=== PATIENT | male | born 1975 | race Caucasian/White ===

== ENCOUNTER 2016-10-11 16:11 | Emergency (ER) | payer OTHER ==
[2016-10-11 16:33] VITALS: BP 169/097
[2016-10-11] MEDS ORDERED: XYLOCAINE-MPF 1% INJ ONE (16:43)
[2016-10-11] MEDS ORDERED: XYLOCAINE-MPF 1% 10 ML ONE (16:45)
--- NOTE | 2016-10-11 17:11 | PROVIDER DOCUMENTATION ---
HPI-Head Injury - General Source: patient - History of Present Illness-Head Injury Head Injury Location: reports: temporal Other injuries associated with incident:: reports: none Quality of Pain: reports: throbbing Severity: reports: mild Onset/Duration: reports: abrupt, just prior to arrival Timing: reports: improving, gone now Method of Injury: reports: direct blow, fell Any recent trauma/injury?: reports: none Loss of Consciousness: no loss of consciousness Modifying Factors: improves with: nothing Injury Associated Symptoms: reports: denies symptoms Locality of Occurance: Home Similar Symptoms Previously?: Yes Recently seen or treated by another doctor?: Yes <Sung Huffman - Last Filed: 10/11/16 17:09> <Allen Galvan - Last Filed: 10/11/16 17:47> - General Chief Complaint: Head Injury Stated Complaint: FALL/HEAD INJURY Time Seen by Provider: 10/11/16 16:36 Allergies/Adverse Reactions: Patient Allergies Allergy/AdvReac Type Severity Reaction Status Date / Time diphenhydramine HCl * Allergy Unknown Verified 10/11/16 16:34 [From Benadryl] divalproex sodium Allergy Unknown Verified 10/11/16 16:34 [From Depakote] Penicillins Allergy Unknown Verified 10/11/16 16:34 Sulfa (Sulfonamide Allergy Unknown Verified 10/11/16 16:34 Antibiotics) - History of Present Illness-Head Injury Nature of Presenting Problem: pt is a 40 yo M that presents to the ER with laceration to anabaptist after having syncopal episode, pt has chronic syncope (Sung Huffman) Review of Systems - Adult - REVIEW OF SYSTEMS - ADULT Constitutional: denies: chills, fever Eyes: denies: decreased vision, blurred vision, double vision Ears, Nose, Mouth & Throat: denies: ear pain, sinus problem, throat pain, throat swelling Cardiovascular: reports: syncope. denies: chest pain, palpitations Respiratory: reports: no symptoms reported Gastrointestinal: reports: no symptoms reported Genitourinary: reports: no symptoms reported Musculoskeletal: reports: no symptoms reported Integumentary: reports: see HPI Neurological: reports: see HPI Psychiatric: reports: no symptoms reported Endocrine: reports: no symptoms reported Hematologic/Lymphatic: reports: no symptoms reported Allergic/Immunologic: reports: no symptoms reported All Other Systems: Reviewed and Negative <Sung Huffman - Last Filed: 10/11/16 17:09> Past History - Adult - PAST MEDICAL HISTORY-ADULT Review of Records: reports: Old Records Reviewed, Nursing Assessment Review, Medications Reviewed Cardiovascular: reports: hyperlipidemia, other (chronic syncope) Gastrointestinal: reports: GERD Neurological: reports: Seizures/Epilepsy Endocrine/Immune: reports: thyroid disorder - PRIOR SURGERIES/PROCEDURES Surgical/Procedure History: reports: none - IMMUNIZATION STATUS Childhood Immunizations: See Nurse Assessment Flu Vaccine: See Nurse Assessment - FAMILY HISTORY Family History: reviewed, not pertinent - SOCIAL HISTORY Living Situation: family <Sung Huffman - Last Filed: 10/11/16 17:09> Physical Exam- Neurological - Physical Exam-Neuro Initial Vital Signs Reviewed: Yes General Appearance: alert, no apparent distress Eye Exam: bilateral eye: normal inspection, PERRL HENMT: moist mucous membranes, normal ENT inspection Head Injury: lacerations (irregular right anabaptist about 3cm) Neck: full range of motion, normal inspection Respiratory: lungs clear, normal breath sounds, no respiratory distress, no accessory muscle use Cardiovascular: regular rate, rhythm, no edema Abdominal Exam: normal bowel sounds, non tender, soft Extremity: normal range of motion, normal inspection water fitness instructor Exam: normal hearing, normal speech, PERRL Motor/Sensory: no motor deficit, no sensory deficit Neurologic: water fitness instructor II-XII nml as tested, no motor/sensory deficits Integumentary: normal turgor, warm/dry Psych/Mental Status: normal mood/affect, normal thought content, normal thought process, oriented x 3 - Glascow Coma Scale Best Eye Response: (4) open spontaneously Best Verbal Response: (5) oriented Best Motor Response: (6) obeys commands Total Glascow Score: 15 <Sung Huffman - Last Filed: 10/11/16 17:09> Progress - CT/MRI 1 CT Study: Head Impression: Normal CT Results: nad <Sung Huffman - Last Filed: 10/11/16 17:09> <Allen Galvan - Last Filed: 10/11/16 17:47> - PLAN OF CARE/RESULTS Progress/Plan/Lab Results: Orders Category Date Time Status Suture Tray Set-Up DIRECTED Care 10/11/16 16:43 Active HEAD W/O CONTRAST [CT] Stat Exams 10/11/16 16:41 Completed Lidocaine 1% Pf [Xylocaine-Mpf 1%] Med 10/11/16 16:43 Discontinued See Dose Instructions INJ NOW ONE Lidocaine 1% Pf [Xylocaine-Mpf 1%] 10 ml Med 10/11/16 16:45 Discontinued .ROUTE As Directed Vital Signs Temp Pulse Resp BP Pulse Ox 10/11/16 16:28 98.4 F 83 20 169/097 97 diphenhydramine HCl * [From Benadryl] Allergy (Verified 10/11/16 16:34) Unknown divalproex sodium [From Depakote] Allergy (Verified 10/11/16 16:34) Unknown Penicillins Allergy (Verified 10/11/16 16:34) Unknown Sulfa (Sulfonamide Antibiotics) Allergy (Verified 10/11/16 16:34) Unknown (Allen Galvan) Procedures - LACERATION/WOUND REPAIR/FB Right Face Wound Location: Other: R temporal area Wound Length: 3cm Wound's Depth, Shape: irregular, flap Wound Explored/Foreign Body: clean Irrigated with Saline?: Yes Prepped with: Betadine, Kit Utilized, Sterile Drapes Applied Anesthetic: 1%, Lidocaine/Xylocaine Volume of Anesthetic (ml's): 3 Wound Debrided: minimal Wound Repaired with: Sutures Suture Size/Type: 4.0, Non-Absorbable, Nylon Number of Sutures: 5 Layer Closure?: No Sterile Dressing Applied?: Yes Splint Applied?: No Sling Applied?: No Post Procedure Neurovascular Exam: N/A Procedure Comment: no complications <Allen Galvan - Last Filed: 10/11/16 17:47> Departure <Sung Huffman - Last Filed: 10/11/16 17:09> - Departure Time of Disposition Order: 17:46 Certified Medical Emergency: Emergent <Allen Galvan - Last Filed: 10/11/16 17:47> - Departure DIAGNOSIS: Fall Qualifiers: Encounter type: initial encounter Qualified Code(s): W19.XXXA - Unspecified fall, initial encounter Laceration of forehead Qualifiers: Encounter type: initial encounter Qualified Code(s): S01.81XA - Laceration without foreign body of other part of head, initial encounter Disposition: HOME 01 Condition: Good Additional Instructions: Keep wound clean and dry. Follow up in 5-7 days for suture removal. ED Follow Up Instructions: You have been treated by a care provider in the Emergency Department. These instructions are being provided to you so you can have an understanding of how to care for yourself upon discharge. Upon discharge from the Emergency Department, you are responsible for making arrangements for follow-up care by a physician of your choice. Take all prescribed medications as directed. Return to the Emergency Department immediately for any new or worsening symptoms. You may call the Physician Referral phone number at [phone] to obtain a list of Physicians who are taking new patients. Referrals: Mata Pierre MD [Primary Care Provider] - Attestation - Scribe Verification/Attestation Scribe:: Sung Huffman Acting as Scribe for:: Allen Galvan Scribe documention review:: This chart was documented by a scribe and accurately reflects the service the provider performed and the decisions made by the provider. - Physician/ BENJIE Attestation Patient care was provided by Advanced Practice Provider:: Yes Advanced Practice Provider:: Allen Galvan Advanced Practice Provider documentation review:: The Mid-level provider documentation, treatment plan and medical decision making was reviewed by the physician who agrees with all treatment and medical decision making by the MLP. <Sung Huffman - Last Filed: 10/11/16 17:09> - Physician/ BENJIE Attestation Patient care was provided by Advanced Practice Provider:: Yes Advanced Practice Provider:: Allen Galvan Advanced Practice Provider documentation review:: The Mid-level provider documentation, treatment plan and medical decision making was reviewed by the physician who agrees with all treatment and medical decision making by the MLP. <Allen Galvan - Last Filed: 10/11/16 17:47> Physician Attestation - Physician Attestation I, the provider, attest to the following statement:: Allen Galvan Physician documentation Attestation:: This documentation recorded by the scribe accurately reflects the service I personally performed and the decisions made by me. <Sung Huffman - Last Filed: 10/11/16 17:09>
--- NOTE | 2016-10-11 17:23 | Diag Imaging Result Document ---
PROCEDURE NAME: HEAD W/O CONTRAST - 10/11/2016 CT OF THE HEAD WITHOUT CONTRAST: FINDINGS: There is no evidence of mass effect, bleed, or abnormal extra-axial fluid collection. There are no previous studies available for comparison. The visualized paranasal sinuses are clear. The calvarium appears to be intact. There is what appears to be chronic deformity of the right mandibular condyle. IMPRESSION: No evidence of acute intracranial disease.
== END 2016-10-11 18:19 | disposition home or self-care (01) ==
LOC: P.ED 16:11
DX: S01.81XA Laceration without foreign body of other part of head, initial encounter (principal); R55 Syncope and collapse; E78.5 Hyperlipidemia, unspecified; E07.9 Disorder of thyroid, unspecified; W19.XXXA Unspecified fall, initial encounter
CPT/HCPCS: 70450